=== PATIENT | female | born 1960 | race Caucasian/White ===

== ENCOUNTER 2020-10-15 14:55 | Emergency (ER) | payer OTHER ==
[~2020-10-15] VITALS: Ht 160 cm; Wt 77.1 kg
--- NOTE | 2020-10-15 16:56 | NUR ---
Patient discharged to home in stable condition. Written and verbal after care instructions given. Patient verbalizes understanding of instructions. Stressed follow up or return to ER for worsening s/s.
== END 2020-10-15 16:56 | disposition home or self-care (01) ==
LOC: ER 15:04
DX: S06.0X0A Concussion without loss of consciousness, initial encounter (principal); W18.30XA Fall on same level, unspecified, initial encounter; Y92.89 Other specified places as the place of occurrence of the external cause
CPT/HCPCS: A4663